=== PATIENT | female | born 1980 | race African-American/Black ===

== ENCOUNTER 2023-02-13 01:06 | Emergency (ER) | payer MEDICAID ==
[~2023-02-13] VITALS: Ht 177.8 cm; Wt 82.0 kg
[2023-02-13] MEDS ORDERED: ONDANSETRON HCL 4MG/2ML INJ IV STA (01:12)
[2023-02-13] MEDS ORDERED: SODIUM CHLORIDE 0.9% 1,000 ML IV ONE (01:15)
[2023-02-13] MEDS ORDERED: HALOPERIDOL LACTATE 5MG/ML VIAL IM ONE (01:30)
[2023-02-13] MEDS ORDERED: LORAZEPAM 2MG/ML CPJ IV ONE (01:30)
[2023-02-13 01:46] LABS: BASOPHILS % 0.4 % (0.0-2.0); EOSINOPHILS % 0.2 % (0.0-5.0); HEMOGLOBIN. 12.8 g/dL (12.0-16.0); LYMPHOCYTES % 20.2 % (20.0-50.0); MEAN CORPUSCULAR HEMOGLOBIN 26.7 pg (28.0-32.0); MEAN CORPUSCULAR VOLUME 81.1 fL (81.0-99.0); MONOCYTES % 5.7 % (2.0-8.0); NEUTROPHILS % 73.5 % (40.0-76.0); PLATELET 449 x1000/uL (130-400); RED BLOOD CELL COUNT 4.81 mill/uL (4.2-5.4)
[2023-02-13 01:54] LABS: CLARITY URINE CLEAR (CLEAR); COLOR URINE YELLOW (YELLOW); KETONES URINE NEGATIVE (NEGATIVE); LEUKOCYTE ESTERASE URINE 1+ (NEGATIVE); NITRITE URINE POSITIVE (NEGATIVE); OCCULT BLOOD URINE TRACE (NEGATIVE); PH URINE 5.5 (4.5-8.0); PROTEIN URINE NEGATIVE (NEGATIVE); SPECIFIC GRAVITY URINE 1.008 (1.005-1.030); UROBILINOGEN URINE 0.2 E.U./dL (0.2-1.0)
[2023-02-13 02:00] LABS: HCG SCREEN NEGATIVE
[2023-02-13 02:04] LABS: CHLORIDE 105 mEq/L (98-107)
[2023-02-13 02:06] LABS: *AMPHETAMINES SCREEN URINE NEGATIVE (NEGATIVE); *BARBITURATES SCREEN URINE NEGATIVE (NEGATIVE); *BENZODIAZEPINES SCREEN URINE NEGATIVE (NEGATIVE); CANNABINOID URINE SCREEN NEGATIVE (NEGATIVE); METHADONE URINE SCREEN NEGATIVE (NEGATIVE); OPIATES URINE SCREEN NEGATIVE (NEGATIVE); PHENCYCLIDINE URINE SCREEN NEGATIVE (NEGATIVE)
[2023-02-13 02:17] LABS: ETHANOL BLOOD 94 mg/dL
[2023-02-13 02:31] LABS: *COCAINE SCREEN URINE PRESUMTIVE POSITIVE (NEGATIVE)
[2023-02-13 03:48] LABS: BG BASE EXCESS -5.3 mmol/L (-2.0-2.0); BG CARBOXYHEMOGLOBIN 3.7 % (0.5-1.5); BG DEOXYHEMOGLOBIN 1.4 % (0.0-5.0); BG FRACTION INSPIRED OXYGEN 28; BG HCO3 ACT 21.4 mmol/L (22.0-26.0); BG OXYGEN SATURATION 98.5 % (92.0-98.5); BG OXYHEMOGLOBIN 94.9 % (94.0-97.0); BG PCO2 46.4 mmHg (35.0-45.0); BG PH 7.281 (7.350-7.450); BG PO2 165.2 mmHg (75.0-100.0); BG SAMPLE SITE RIGHT RADIAL; BG TOTAL HEMOGLOBIN 12.5 g/dL (12.0-18.0); BG VENT MODE NASAL CANNULA
[2023-02-13 07:00] VITALS: BP 130/78
== END 2023-02-13 08:19 | disposition home or self-care (01) ==
LOC: EDBD 01:30 → ER 01:30
DX: R41.82 Altered mental status, unspecified (principal); I49.9 Cardiac arrhythmia, unspecified
CPT/HCPCS: 36415; 36600; 70450; 71045; 80053; 80305; 80307; 80320; 80329; 81003; 82140; 82375; 82805; 82962; 83605; 84703; 85025; 93005; 96361; 96372; 96374; 96375; 99291; J1630; J2060; J2405; J7030; Z7610; G0480

== ENCOUNTER 2023-06-03 18:37 | Emergency (ER) | payer BC, MEDICAID ==
[~2023-06-03] VITALS: Ht 170.2 cm; Wt 82.0 kg
[2023-06-03 18:38] VITALS: O2SAT 100
[2023-06-03 20:56] LABS: BASOPHILS % 0.8 % (0.0-2.0); EOSINOPHILS % 0.3 % (0.0-5.0); HEMOGLOBIN. 13.3 g/dL (12.0-16.0); LYMPHOCYTES % 15.7 % (20.0-50.0); MEAN CORPUSCULAR HEMOGLOBIN 27.1 pg (28.0-32.0); MEAN CORPUSCULAR VOLUME 81.4 fL (81.0-99.0); MEAN PLATELET VOLUME 8.1 fl (7.4-10.4); MONOCYTES % 4.7 % (2.0-8.0); NEUTROPHILS % 78.5 % (40.0-76.0); PLATELET 506 x1000/uL (130-400); RED BLOOD CELL COUNT 4.92 mill/uL (4.2-5.4)
[2023-06-03 21:04] LABS: CHLORIDE 104 mEq/L (98-107)
[2023-06-03 21:06] LABS: HCG SCREEN NEGATIVE
[2023-06-03] MEDS ORDERED: MAGNESIUM OXIDE 400MG TABLET PO SCH (22:00)
[2023-06-03] MEDS ORDERED: POTASSIUM CHLORIDE 20MEQ TABLET SR PO ONE (22:00)
[2023-06-04 00:05] LABS: CLARITY URINE BLOODY (CLEAR); COLOR URINE BLOODY (YELLOW); SPECIFIC GRAVITY URINE 1.023 (1.005-1.030)
[2023-06-04 00:06] LABS: KETONES URINE NEGATIVE (NEGATIVE); LEUKOCYTE ESTERASE URINE 2+ (NEGATIVE); NITRITE URINE POSITIVE (NEGATIVE); OCCULT BLOOD URINE 3+ (NEGATIVE); PROTEIN URINE 1+ (NEGATIVE); UROBILINOGEN URINE 0.2 E.U./dL (0.2-1.0)
[2023-06-04] MEDS ORDERED: LIDOCAINE HCL 1% 20ML VIAL (Pyxis) INJ INFIL ONE (01:15)
[2023-06-04] MEDS ORDERED: CEFTRIAXONE SODIUM 1 G/VIAL IM ONE (01:15)
[2023-06-04] MEDS ORDERED: KETOROLAC 60MG/2ML VIAL IM ONE (01:15)
[2023-06-04] MEDS ORDERED: MORPHINE SULFATE 10 MG/ML CPJ IV ONE (01:15)
[2023-06-04] MEDS ORDERED: LIDOCAINE HCL 1% 20ML VIAL (Pyxis) INJ INFIL NR (03:30)
[2023-06-04] MEDS ORDERED: KETOROLAC 60MG/2ML VIAL IM NR (03:30)
[2023-06-04] MEDS ORDERED: CEFTRIAXONE SODIUM 1 G/VIAL IM NR (03:30)
[2023-06-04] MEDS ORDERED: MORPHINE SULFATE 10 MG/ML CPJ IV NR (03:30)
[2023-06-04] MEDS ORDERED: TOPUD PO (03:36)
[2023-06-04] MEDS ORDERED: CEFP200T13 MT (03:36)
[2023-06-04] MEDS ORDERED: IBUP-2028 MT (03:36)
[2023-06-04 03:58] VITALS: TEMP 98.2
[2023-06-04 04:00] VITALS: BP 145/98; PULSE 98; RESP 14
== END 2023-06-04 04:10 | disposition home or self-care (01) ==
LOC: ER 18:37
DX: R10.11 Right upper quadrant pain (principal); I10 Essential (primary) hypertension; Z98.890 Other specified postprocedural states
CPT/HCPCS: 80053; 81003; 84703; 83690; 85025; 36415; 99285; 74176; 96372; 96374; J0696; J1885; J3490; J2270; Z7610 ×2

== ENCOUNTER 2024-11-27 01:50 | Emergency (ER) | payer MEDICAID ==
[~2024-11-27] VITALS: Ht 162.6 cm; Wt 68.5 kg
[~2024-11-27 01:50] MED LIST: CEFP200T13 MT; IBUP-2028 MT; TOPUD PO
[2024-11-27 01:51] VITALS: O2SAT 100
[2024-11-27] MEDS: ONDANSETRON 4MG ODT PO STA (05:55)
[2024-11-27] MEDS: ACETAMINOPHEN 325MG TABLET PO ONE (06:00)
[2024-11-27 07:29] LABS: BASOPHILS % 0.8 % (0.0-2.0); EOSINOPHILS % 0.3 % (0.0-5.0); HEMATOCRIT. 39.7 % (36.0-48.0); HEMOGLOBIN. 13.1 g/dL (12.0-16.0); LYMPHOCYTES % 32.5 % (20.0-50.0); MEAN CORPUSCULAR HEMOGLOBIN 27.4 pg (28.0-32.0); MEAN CORPUSCULAR VOLUME 83.1 fL (81.0-99.0); MEAN PLATELET VOLUME 7.8 fl (7.4-10.4); NEUTROPHILS % 58.4 % (40.0-76.0); PLATELET 307 x1000/uL (130-400); RED BLOOD CELL COUNT 4.77 mill/uL (4.2-5.4); RED CELL DISTRIBUTION WIDTH 19.7 % (11.6-14.6); WHITE BLOOD COUNT 7.2 x1000/uL (4.5-11.0)
[2024-11-27 07:40] LABS: CHLORIDE 100 mEq/L (98-107); SODIUM 140 mEq/L (136-145)
[2024-11-27 07:41] LABS: CALCIUM 9.2 mg/dL (8.7-10.4); CARBON DIOXIDE 29 mEq/L (21-32)
[2024-11-27 07:46] LABS: CREATININE 0.7 mg/dL (0.6-1.0); GLUCOSE 110 mg/dL (70-105)
[2024-11-27 07:48] LABS: ALANINE AMINOTRANSFERASE 63 IU/L (10-49); ALBUMIN 4.7 g/dL (3.2-4.8); ASPARTATE AMINOTRANSFERASE 75 IU/L (<34); BILIRUBIN DIRECT 0.2 mg/dL (<=3.0)
[2024-11-27 07:49] LABS: BILIRUBIN TOTAL 0.5 mg/dL (0.1-1.0); PROTEIN TOTAL 8.3 g/dL (6.0-8.3)
[2024-11-27 07:55] LABS: POTASSIUM 2.7 mEq/L (3.5-5.1)
[2024-11-27 07:56] LABS: UREA NITROGEN BLOOD < 5 mg/dL (9-23)
[2024-11-27 08:01] LABS: HCG SCREEN NEGATIVE
[2024-11-27] MEDS: POTASSIUM CHLORIDE 20MEQ/PACKET PO ONE (08:44)
[2024-11-27 09:32] LABS: CLARITY URINE CLEAR (CLEAR); COLOR URINE YELLOW (YELLOW); GLUCOSE URINE NEGATIVE (NEGATIVE); KETONES URINE NEGATIVE (NEGATIVE); LEUKOCYTE ESTERASE URINE TRACE (NEGATIVE); NITRITE URINE NEGATIVE (NEGATIVE); OCCULT BLOOD URINE 3+ (NEGATIVE); PROTEIN URINE TRACE (NEGATIVE)
[2024-11-27 09:51] LABS: MUCUS URINE 1+ /lpf (< = 2+); SQUAMOUS EPITHELIAL CELL URINE 2+ /lpf (RARE/1+)
[2024-11-27 09:52] LABS: BACTERIA URINE 1+
[2024-11-27 09:53] LABS: RBC URINE 0-2 /hpf (0-2)
[2024-11-27 12:22] VITALS: BP 137/93; PULSE 98; RESP 18; TEMP 36.83628; O2SAT 98
[2024-11-27] MEDS ORDERED: TOPUD PO (14:17)
== END 2024-11-27 15:19 | disposition home or self-care (01) ==
LOC: ER 01:50
DX: M54.2 Cervicalgia (principal); E87.6 Hypokalemia; E11.9 Type 2 diabetes mellitus without complications; I10 Essential (primary) hypertension; Z79.899 Other long term (current) drug therapy
CPT/HCPCS: 99284; 70450; 80076; 80048; 81003; 81025; 84703; 83690; 85025; 36415; 72125; Q0162